=== PATIENT | female | born 1955 | race Caucasian/White ===

== ENCOUNTER → 2020-08-02 | Outpatient (REF) ==
[2013-04-25 13:27] VITALS: BP 127/77
[~2020-08-02] MED LIST: LISINOPRIL20 MG PO
== END ==
LOC: LAB 08:42
DX: Z00.00 Encounter for general adult medical examination without abnormal findings (principal); E55.9 Vitamin D deficiency, unspecified

== ENCOUNTER → 2020-08-30 | Outpatient (CLI) | payer OTHER ==
[2013-04-25 13:27] VITALS: BP 127/77
== END ==
LOC: MAMMO 08:30
DX: Z12.31 Encounter for screening mammogram for malignant neoplasm of breast (principal)

== ENCOUNTER → 2020-12-01 | Outpatient (CLI) | payer OTHER ==
[2013-04-25 13:27] VITALS: BP 127/77
== END ==
LOC: RAD 08:41
DX: N20.0 Calculus of kidney (principal)

== ENCOUNTER → 2021-02-07 | Outpatient (REF) | LOC: LAB 10:37 | DX: Z00.00 Encounter for general adult medical examination without abnormal findings (principal); E55.9 Vitamin D deficiency, unspecified; E78.5 Hyperlipidemia, unspecified ==

== ENCOUNTER → 2022-02-27 | Outpatient (CLI) | payer OTHER | LOC: MAMMO 08:18 | DX: Z13.820 Encounter for screening for osteoporosis (principal); Z12.31 Encounter for screening mammogram for malignant neoplasm of breast; M85.80 Other specified disorders of bone density and structure, unspecified site ==

== ENCOUNTER → 2023-04-02 | Outpatient (CLI) | payer OTHER | LOC: MAMMO 08:30 | DX: Z12.31 Encounter for screening mammogram for malignant neoplasm of breast (principal) ==